=== PATIENT | female | born 1965 | race Caucasian/White ===

== ENCOUNTER 2018-11-04 20:46 | Inpatient (IN) | payer OTHER ==
[~2018-11-04] VITALS: Ht 172.7 cm; Wt 73.3 kg
[2018-11-04] MEDS ORDERED: MORPHINE SULFATE 4 MG/ML, 1ML ONE ×2 (20:54→21:14)
[2018-11-04] MEDS: MORPHINE SULFATE 4 MG/ML, 1ML IVPush PRN ×2 (21:00→21:19)
--- NOTE | 2018-11-04 21:19 | NUR ---
[facility] on friday and has seen pcp. Mglf today w/ "a tearing sound in that same damn spot". C/o 04/01 pain after 200 mcg fentanyl and 1.5 mg versed. Pt given one dose of morphine and no effect. Given second dose at this time. Awaiting xr.
[2018-11-04] MEDS ORDERED: HYDROmorphone 2 MG/ML, 1ML ONE (21:42)
--- NOTE | 2018-11-04 21:46 | NUR ---
Pt back from xr and no pain relief from prior meds. Pa notified. This rn medicated per aug. Awaiting xr results.
[2018-11-04] MEDS ORDERED: HYDROmorphone 2 MG/ML, 1ML IVPush PRN (22:00)
--- NOTE | 2018-11-04 22:06 | NUR ---
Pt tbadm for femur repair. Awaiting adm orders. Ekg and labs at bedside.
[2018-11-04 22:18] LABS: BASOPHILS # (AUTO) 0.02 x10^3/uL (0-0.1); BASOPHILS % (AUTO) 0 % (0-1); EOSINOPHILS # (AUTO) 0.03 x10^3/uL (0-0.4); EOSINOPHILS % (AUTO) 0 % (1-7); LYMPHOCYTES # (AUTO) 0.75 x10^3/uL (1-3.4); LYMPHOCYTES % (AUTO) 8 % (22-44); MD NO; MEAN CORPUSCULAR HEMOGLOBIN 31.3 pg (27.0-34.8); MEAN CORPUSCULAR VOLUME 92.1 fL (80-100); MONOCYTES # (AUTO) 0.26 x10^3/uL (0.2-0.8); MONOCYTES % (AUTO) 3 % (2-9); NEUTROPHILS # (AUTO) 8.45 x10^3/uL (1.8-6.8); NEUTROPHILS % (AUTO) 89 % (42-75); PLATELET COUNT 195 x10^3/uL (130-400); RED BLOOD COUNT 4.41 x10^6/uL (3.82-5.3); RED CELL DISTRIBUTION WIDTH 12.2 % (9.6-15.2)
[2018-11-04 22:29] LABS: ALBUMIN 4.3 g/dL (3.4-5.0); ANION GAP 7 mmol/L (5-15); CALCIUM 9.6 mg/dL (8.5-10.1); CHLORIDE 105 mmol/L (98-107); CREATININE 0.81 mg/dL (0.55-1.02); INTERNATIONAL NORMALIZED RATIO 0.97 (0.93-1.1); PROTHROMBIN TIME 10.2 Seconds (9.6-11.5)
--- NOTE | 2018-11-04 22:55 | NUR ---
Sleeping comfortably on gurney. Rr even and unlabored. Nadn. Awaiting adm order.
[2018-11-04 23:53] VITALS: BP 107/68
[2018-11-05] MEDS ORDERED: LINA290C PO (00:33)
[2018-11-05] MEDS ORDERED: DOCUSATE 100 MG CAPSULE PO PRN (01:00)
[2018-11-05] MEDS ORDERED: morphine SULFATE 10 MG/ML, 1ML IVPush PRN (01:00)
[2018-11-05] MEDS ORDERED: BISACODYL 10 MG SUPP PR PRN (01:00)
[2018-11-05] MEDS ORDERED: hydrALAzine 20 MG/ML, 1ML IVPush PRN (01:00)
[2018-11-05] MEDS ORDERED: POLYETHYLENE GLYCOL 17 GM PACKET PO PRN (01:00)
[2018-11-05] MEDS ORDERED: ONDANSETRON ODT 4 MG PO PRN (01:00)
[2018-11-05] MEDS ORDERED: OXYcodone IR 5MG TABLET PO PRN (01:00)
[2018-11-05] MEDS: LINACLOTIDE 290 MCG PO SCH ×2 (01:00→20:58)
[2018-11-05 01:22] VITALS: BP 107/68
[2018-11-05] MEDS: SODIUM CHLORIDE 0.9% 1,000 ML IV SCH ×2 (01:27→10:46)
[2018-11-05] MEDS: HYDROmorphone 2 MG/ML, 1ML IV PRN ×4 (01:43→23:26)
[2018-11-05] MEDS: ONDANSETRON 2MG/ML, 2ML IVPush PRN ×2 (02:12→07:54)
[2018-11-05] MEDS: OXYcodone IR 5MG TABLET PO PRN ×6 (05:26→22:22)
[2018-11-05] MEDS: PROMETHAZINE 25 MG/ML, 1ML IM PRN (08:53)
[2018-11-05 09:37] VITALS: BP 116/71
[2018-11-05 13:28] VITALS: BP 105/58
[2018-11-05 18:46] VITALS: BP 94/47
[2018-11-06] MEDS: SODIUM CHLORIDE 0.9% 1,000 ML IV SCH ×2 (00:17→13:20)
[2018-11-06 00:35] VITALS: BP 91/48
[2018-11-06] MEDS: HYDROmorphone 2 MG/ML, 1ML IV PRN ×2 (02:32→07:42)
[2018-11-06] MEDS: OXYcodone IR 5MG TABLET PO PRN ×2 (05:03→09:14)
[2018-11-06 05:35] LABS: BASOPHILS # (AUTO) 0.03 x10^3/uL (0-0.1); BASOPHILS % (AUTO) 0 % (0-1); EOSINOPHILS # (AUTO) 0.08 x10^3/uL (0-0.4); EOSINOPHILS % (AUTO) 1 % (1-7); LYMPHOCYTES # (AUTO) 0.97 x10^3/uL (1-3.4); LYMPHOCYTES % (AUTO) 17 % (22-44); MD NO; MEAN CORPUSCULAR HEMOGLOBIN 31.9 pg (27.0-34.8); MEAN CORPUSCULAR HGB CONC 34.3 g/dL (32.4-35.8); MEAN PLATELET VOLUME 9.1 fL (7.4-10.4); MONOCYTES # (AUTO) 0.36 x10^3/uL (0.2-0.8); MONOCYTES % (AUTO) 6 % (2-9); NEUTROPHILS # (AUTO) 4.46 x10^3/uL (1.8-6.8); NEUTROPHILS % (AUTO) 76 % (42-75); PLATELET COUNT 160 x10^3/uL (130-400); RED BLOOD COUNT 3.51 x10^6/uL (3.82-5.3); RED CELL DISTRIBUTION WIDTH 12.6 % (9.6-15.2)
[2018-11-06 05:38] LABS: ALBUMIN 3.2 g/dL (3.4-5.0); ANION GAP 3 mmol/L (5-15); CALCIUM 8.3 mg/dL (8.5-10.1); CHLORIDE 108 mmol/L (98-107)
[2018-11-06 05:47] LABS: ALANINE AMINOTRANSFERASE 21 U/L (12-78); ALKALINE PHOSPHATASE 68 U/L (45-117); BILIRUBIN,TOTAL 0.6 mg/dL (0.2-1.0); CHOL/HDL RATIO 2.7; CHOLESTEROL, TOTAL 134 mg/dL (140-239); HDL CHOL % 37 % (28-40); HDL CHOLESTEROL (DIRECT) 50 mg/dL (40-60); LDL CHOLESTEROL,CALCULATED 71 mg/dL (54-169); LDL/HDL RATIO 1.4 (0.5-3.0); TOTAL PROTEIN 6.3 g/dL (6.4-8.2); TRIGLYCERIDES 64 mg/dL (50-200); VLDL CHOLESTEROL 13 mg/dL (0-25)
[2018-11-06] MEDS ORDERED: KETOROLAC 60 MG/2 ML ONE (06:23)
[2018-11-06] MEDS ORDERED: ROPIvacaine/PF 0.5%, 20 ML ONE (06:23)
[2018-11-06] MEDS ORDERED: SODIUM CHLORIDE 0.9% 50 ML ONE (06:23)
[2018-11-06] MEDS ORDERED: VANCOMYCIN 1,000 MG ONE (06:23)
[2018-11-06] MEDS ORDERED: TRANEXAMIC ACID 100 MG/ML, 10ML ONE ×2 (06:23)
[2018-11-06] MEDS ORDERED: EPINEPHRINE 1 MG/ML, 1ML ONE (06:23)
[2018-11-06 07:00] VITALS: BP 106/51
[2018-11-06] MEDS: ONDANSETRON 2MG/ML, 2ML IVPush PRN (09:14)
[2018-11-06] MEDS: ACETAMINOPHEN 325 MG TABLET PO PRN ×2 (09:28→20:55)
[2018-11-06] MEDS: PROMETHAZINE 25 MG/ML, 1ML IM PRN (10:29)
[2018-11-06] MEDS ORDERED: FENTANYL PF 250 MCG/5ML ONE (12:54)
[2018-11-06] MEDS ORDERED: MIDAZOLAM 1 MG/ML, 2ML ONE (12:54)
[2018-11-06] MEDS ORDERED: DEXAMETHASONE 4 MG/ML, 1ML ONE ×2 (12:55→12:56)
[2018-11-06] MEDS ORDERED: ONDANSETRON 2MG/ML, 2ML ONE ×2 (12:55→12:56)
[2018-11-06] MEDS ORDERED: CEFAZOLIN 1,000 MG ONE ×2 (12:55→12:56)
[2018-11-06] MEDS ORDERED: ROCURONIUM 10MG/ML,5ML ONE (12:56)
[2018-11-06] MEDS ORDERED: PROPOFOL 10 MG/ML, 20ML ONE (12:56)
[2018-11-06] MEDS ORDERED: SUCCINYLCHOLINE 20 MG/ML, 10ML ONE (12:56)
[2018-11-06] MEDS ORDERED: HYDROmorphone 2 MG/ML, 1ML IVPush PRN (13:00)
[2018-11-06] MEDS ORDERED: MORPHINE SULFATE 4 MG/ML, 1ML IVPush PRN (13:00)
[2018-11-06] MEDS ORDERED: PROMETHAZINE 25 MG/ML, 1ML IV PRN (13:00)
[2018-11-06] MEDS ORDERED: HALOPERIDOL 5 MG/ML IV PRN (13:00)
[2018-11-06] MEDS ORDERED: EPHEDRINE 50 MG/ML, 1ML IVPush PRN (13:00)
[2018-11-06] MEDS ORDERED: ONDANSETRON ODT 8 MG PO PRN (13:00)
[2018-11-06] MEDS ORDERED: LABETALOL 5MG/ML, 20ML IV PRN (13:00)
[2018-11-06] MEDS ORDERED: PROMETHAZINE 12.5 MG SUPP PR PRN (13:00)
[2018-11-06] MEDS ORDERED: MIDAZOLAM 1 MG/ML, 2ML IV PRN (13:00)
[2018-11-06] MEDS ORDERED: ALBUTEROL SULFATE 2.5 MG/3 ML NPPB PRN (13:00)
[2018-11-06] MEDS ORDERED: ONDANSETRON 2MG/ML, 2ML IV PRN (13:00)
[2018-11-06] MEDS ORDERED: hydrALAzine 20 MG/ML, 1ML IV PRN (13:00)
[2018-11-06] MEDS ORDERED: DIAZEPAM 5 MG/ML, 2ML IVPush PRN (13:00)
[2018-11-06] MEDS ORDERED: MEPERIDINE/PF 25MG/0.5ML IVPush PRN (13:00)
[2018-11-06] MEDS ORDERED: OXYcodone 5 MG/5 ML ORAL.SOL UDC PO PRN (13:00)
[2018-11-06] MEDS ORDERED: POLYETHYLENE GLYCOL 17 GM PACKET PO PRN (13:30)
[2018-11-06 14:00] VITALS: BP 118/61
[2018-11-06] MEDS ORDERED: PHARMACOKINETIC CONSULTATION MC ONE (14:00)
[2018-11-06] MEDS ORDERED: VANCOMYCIN PER PHARMACY MC PRN (14:00)
[2018-11-06] MEDS ORDERED: PHARMACOKINETIC MONITORING MC PRN (14:00)
[2018-11-06] MEDS ORDERED: OXYcodone 5 MG/5 ML ORAL.SOL UDC ONE (14:49)
[2018-11-06] MEDS ORDERED: FENTANYL PF 100 MCG/2ML ONE (14:49)
[2018-11-06] MEDS: FENTANYL PF 100 MCG/2ML IV PRN ×2 (14:51→15:03)
[2018-11-06] MEDS ORDERED: HYDROmorphone 2 MG/ML, 1ML ONE (15:13)
[2018-11-06] MEDS: VANCOMYCIN 1,500 MG in SODIUM CHLORIDE 0.9% 250 ML IV SCH (17:30)
[2018-11-06 18:52] VITALS: BP 94/52
[2018-11-06] MEDS: CEFAZOLIN 2,000 MG in SODIUM CHLORIDE 0.9% 50 ML IV SCH (20:49)
[2018-11-06] MEDS: LINACLOTIDE 290 MCG PO SCH (20:50)
[2018-11-06] MEDS: ASPIRIN 81 MG TABLET EC PO SCH (20:50)
[2018-11-07 00:02] VITALS: BP 96/60
[2018-11-07] MEDS: SODIUM CHLORIDE 0.9% 1,000 ML IV SCH (02:40)
[2018-11-07 04:13] VITALS: BP 100/62
[2018-11-07] MEDS: CEFAZOLIN 2,000 MG in SODIUM CHLORIDE 0.9% 50 ML IV SCH (04:24)
[2018-11-07] MEDS: VANCOMYCIN 1,500 MG in SODIUM CHLORIDE 0.9% 250 ML IV SCH (05:35)
[2018-11-07 05:37] LABS: BASOPHILS # (AUTO) 0.02 x10^3/uL (0-0.1); BASOPHILS % (AUTO) 0 % (0-1); EOSINOPHILS # (AUTO) 0.02 x10^3/uL (0-0.4); EOSINOPHILS % (AUTO) 0 % (1-7); LYMPHOCYTES # (AUTO) 0.91 x10^3/uL (1-3.4); LYMPHOCYTES % (AUTO) 11 % (22-44); MD NO; MEAN CORPUSCULAR HEMOGLOBIN 31.5 pg (27.0-34.8); MEAN CORPUSCULAR HGB CONC 32.9 g/dL (32.4-35.8); MEAN CORPUSCULAR VOLUME 95.9 fL (80-100); MEAN PLATELET VOLUME 9.4 fL (7.4-10.4); MONOCYTES # (AUTO) 0.66 x10^3/uL (0.2-0.8); MONOCYTES % (AUTO) 8 % (2-9); NEUTROPHILS # (AUTO) 6.85 x10^3/uL (1.8-6.8); NEUTROPHILS % (AUTO) 81 % (42-75); PLATELET COUNT 195 x10^3/uL (130-400); RED BLOOD COUNT 3.53 x10^6/uL (3.82-5.3); RED CELL DISTRIBUTION WIDTH 12.4 % (9.6-15.2)
[2018-11-07 05:39] LABS: ANION GAP 4 mmol/L (5-15); CALCIUM 8.8 mg/dL (8.5-10.1); CHLORIDE 105 mmol/L (98-107)
[2018-11-07 05:40] LABS: CREATININE 0.77 mg/dL (0.55-1.02)
[2018-11-07] MEDS: OXYcodone IR 5MG TABLET PO PRN ×2 (06:40→11:09)
[2018-11-07] MEDS: ACETAMINOPHEN 325 MG TABLET PO PRN (08:07)
[2018-11-07] MEDS: ASPIRIN 81 MG TABLET EC PO SCH (08:35)
[2018-11-07 08:54] VITALS: BP 105/62
[2018-11-07] MEDS ORDERED: OXYC5TAB2 PO (09:05)
[2018-11-07] MEDS ORDERED: TRAM50TA2 PO ×2 (09:06→10:33)
[2018-11-07] MEDS ORDERED: MELO7.5T31 PO ×2 (09:07→10:33)
[2018-11-07] MEDS ORDERED: ONDA4TAB7 PO (09:08)
[2018-11-07] MEDS ORDERED: ASPI-496 PO (09:09)
[2018-11-07] MEDS ORDERED: DOCU-131 PO (09:10)
== END 2018-11-07 12:53 | disposition home or self-care (01) | DRG 470 ==
LOC: ED 22:28 → EDIP 22:33 → ED 23:19 → 4NOR 23:45 → DCLOUNGE 11-07 12:45
PROVIDERS: ADMIT Internal Medicine; ATTEND Internal Medicine
PROC: 0SR906A Replacement of Right Hip Joint with Oxidized Zirconium on Polyethylene Synthetic Substitute, Uncemented, Open Approach (ICD-10-PCS; principal; 2018-11-06 13:45)
DX: S72.011A Unspecified intracapsular fracture of right femur, initial encounter for closed fracture (principal); K58.9 Irritable bowel syndrome, unspecified; W18.2XXA Fall in (into) shower or empty bathtub, initial encounter; Y93.89 Activity, other specified; Y92.031 Bathroom in apartment as the place of occurrence of the external cause; Y99.8 Other external cause status; Z87.891 Personal history of nicotine dependence; Z88.8 Allergy status to other drugs, medicaments and biological substances
CPT/HCPCS: 36415; 71045; 72192; 76000; 80048; 80053; 80061; 82040; 83735; 84443; 85025; 85610; 85730; 88305; 88311; 93005; 96374; 96375; 99285; C1713; G0378; J0171; J0690; J1100; J1170; J1885; J2250; J2405; J2550; J2704; J2795; J3010; J3370; Q0162; C1776; J0330; J2270; J7030; J7050